=== PATIENT | male | born 1970 | race Caucasian/White ===

== ENCOUNTER 2020-01-10 08:48 | Emergency (ER) | payer OTHER ==
[~2020-01-10] VITALS: Ht 180.3 cm; Wt 88.5 kg
--- NOTE | ~2020-01-10 | EMS ---
[address] [address] EMS Patient Care Report Name: NAOMI KHALIL Room #: PRE M.R.#: [id number] Admission: Attend Phys: Discharge: Date of : 66 Report #: [id number] THIS REPORT FOR: //name// Report Transmitted: 01/10/2020 08:19 EMS Care Summary [place], [place]/[facility] Incident [id number] @ 01/10/2020 08:02 Incident Location [address] [place] [address] Patient NAOMI KHALIL Male, 49 Years 1970 Patient Address [address] [place] [address] Patient History Hypertension (HTN),Gastro-Esophageal Reflux Disease (GERD), Patient Allergies No known allergies, Patient Medications Lisinopril, Hydrochlorothiazide (Hctz), Chief Complaint CHEST PAIN Disposition Transported No Lights/[place] Dispatch Reason Chest Pain (Non-Traumatic) Transported To [facility] Narrative DISPATCHED EMERGENCY ON A C/P. 49 Y/O MALE AMBULATING OUT OF [place] ON S[address] OF [address] APPEARING IN NO IMMEDIATE DISTRESS. GCS 15 AND A/OX4. CONSENTS FOR TX AND TRANSPORATION. PT STATES THAT HE HAS BEEN HAVING C/P X2 DAYS THAT FEELS LIKE SOMEONE IS SITTING ON HIS CHEST. SHARP/CONSTANT C/P AT 5. PT STATES THAT [address] [address] EMS Patient Care Report Name: NAOMI KHALIL Room #: PRE ER M.R.#: [id number] Admission: Attend Phys: Discharge: Date of : 66 Report #: [id number] HE THOUGHT IT WAS HIS HEARTBURN SO HE HAS BEEN TAKING "TUMS" WITHOUT RELIEF. STATES HE HAS HAD SOA, NAUSEA/VOMITING BUT DENIES ANY CURRENTLY. STATES HE HAS HAD SIMILAR EPISODES OF ACID REFULX BUT NONE THAT WERE EVER THIS BAD. ASSISTED WITHOUT INCIDENT TO STRETCHER. MOVED WITHOUT INCIDENT TO AMBULANCE. PLACED ON MONTIOR AND V/S'S OBTAINED. 12-LEAD ECG OBTAINED SHOWING NSR AND NO OBVIOUS ST ELEVATION OR DEPRESSION IN ANY LEADS. IV ESTABLISHED. ASPIRIN ADMINISTERED PER PROTOCOL. TRANSPORTED TO [facility]. REASSESSED ENROUTE. REMAINS GCS 15 AND A/OX4. PAIN IS NOW 0. PT STATES HE IS FEELING MUCH BETTER. V/S'S CONTINOUSLY MONITORED ENROUTE. REPORT CALLED TO HOSPITAL. MOVED WITHOUT INCIDENT TO ER HOSPITAL BED. PT CARE TRANSFERRED TO ED RN. Initial Vitals @08:29P: 83,R: 16,BP: 139/102,Pain: 0/10,GCS: 15,SpO2: 99,Revised Trauma: 12,VT Suspected: false @08:20P: 83,R: 16,BP: 154/112,Pain: 5/10,GCS: 15,Revised Trauma: 12, Assessments @08:19MENTAL:Time Oriented,Person Oriented,Event Oriented,Place Oriented,SKIN:HEENT:Eyes: Left Pupil: 4-mm,Eyes: Right Pupil: 4-mm,Head/Face: No Abnormalities,Neck/Airway: No Abnormalities,LUNG SOUNDS:General: Vomiting,General: Nausea,ABDOMEN:General: Vomiting,General: Nausea,PELVIS//GI:EXTREMITIES:Capillary Refill: Left Upper: < 2 Sec,Capillary Refill: Left Lower: < 2 Sec,Capillary Refill: Right Upper: < 2 Sec,Capillary Refill: Right Lower: < 2 Sec,Left Arm: No Abnormalities,Right Arm: No Abnormalities,Left Leg: No Abnormalities,Right Leg: No Abnormalities,PULSE:Radial: 2+ Normal,NEURO:No Abnormalities, Impression Chest Pain / Discomfort Procedures @08:19ALS AssessmentResponse: UnchangedSucceeded@08:20StretcherResponse: Unchanged@08:2312-Lead ECGResponse: UnchangedSucceeded@08:223-Lead ECGResponse: UnchangedSucceeded@08:24Aspirin - 324 Milligrams (mg) - OralResponse: Improved Timeline 08:00,Call Received 08:00,Dispatch Notified 08:02,Dispatched 08:03,En Route 08:16,On Scene 08:18,At Patient 08:19,ALS Assessment,Response: UnchangedSucceeded, 08:20,Stretcher,Response: Unchanged 08:20,BP: 154/112 M,PULSE: 83,RR: 16 R,SPO2: Ox,ETCO2: ,BG: ,PAIN: 5,GCS: 15, 08:22,3-Lead ECG,Response: UnchangedSucceeded, [facility] [address] [place] [address] EMS Patient Care Report Name: NAOMI KHALIL Room #: PRE M.R.#: [id number] Admission: Attend Phys: Discharge: Date of : 66 Report #: [id number] 08:23,12-Lead ECG,Response: UnchangedSucceeded, 08:24,Aspirin - 324 Milligrams (mg) - Oral,Response: Improved 08:29,BP: 139/102 M,PULSE: 83,RR: 16 R,SPO2: 99 Ox,ETCO2: ,BG: ,PAIN: 0,GCS: 15, 08:31,Depart Scene 08:44,At Destination 09:00,Call Closed Disclaimer v1.1 Copyright 2020 [email or web address] This EMS Care Summary contains data elements from the applicable legal record (which may be displayed differently). It is designed to provide pertinent information for the following purposes: continuity of care, clinical quality, and state data reporting. The complete legal record is available to ED staff and administrators of the receiving hospital in [employer]'s Patient Tracker. All data is provided "as is."
[2020-01-10] MEDS ORDERED: LOSARTAN-HCTZ1 EAC1 PO (09:09)
[2020-01-10 09:15] LABS: ABSOLUTE NEUTROPHILS 9.5 thou/uL (1.4-8.2); EOSINOPHILS 2.1 % (0.0-3.0); HEMATOCRIT 35.3 % (42.0-52.0); LYMPHOCYTES 12.6 % (24.0-44.0); MCH 22.2 pg (26.0-34.0); MCV 71.5 fL (80.0-100.0); MONOCYTES 9.8 % (1.0-8.0); PLATELET COUNT 306 thou/uL (150-400); POLYS 74.5 % (36.0-66.0); RBC 4.94 mil/uL (4.50-6.00); RDW 16.7 % (10.5-14.5); WBC 12.8 thou/uL (4.0-11.0)
[2020-01-10 09:25] LABS: ANION GAP 6 mmol/L (7-16); BUN 13 mg/dL (7-18); CALCIUM 9.8 mg/dL (8.5-10.1); CHLORIDE 101 mmol/L (98-107); CO2 30 mmol/L (21-32); CREATININE 1.3 mg/dL (0.7-1.3); GLUCOSE 115 mg/dL (74-106); POTASSIUM 3.7 mmol/L (3.5-5.1); SODIUM 137 mmol/L (136-145)
[2020-01-10 09:35] LABS: ALBUMIN 3.5 g/dL (3.4-5.0); SGOT 30 U/L (15-37); SGPT 39 U/L (30-65); TOTAL BILIRUBIN 0.3 mg/dL (0.2-1.0); TOTAL PROTEIN 7.9 g/dL (6.4-8.2); TROPONIN-I <0.06 ng/mL (<0.06)
[2020-01-10 10:00] LABS: ANISOCYTOSIS 1+; MICROCYTES 1+
[2020-01-10 10:01] LABS: HYPOCHROMASIA 1+
[2020-01-10] MEDS ORDERED: LIDOCAINE40 MG/1 ML PO (10:55)
[2020-01-10] MEDS ORDERED: BENADRYL A12.5 MG/5 PO (10:55)
[2020-01-10 11:33] VITALS: BP 125/86
--- NOTE | 2020-01-11 10:53 | EKG ---
[facility] [place] [address] ELECTROCARDIOGRAM REPORT Name: NAOMI KHALIL Room #: DEP [facility]#: [id number] Admission: 01/10/20 Attend Phys: Discharge: 01/10/20 Date of : 66 Report #: [id number] THIS REPORT FOR: cc: FAM - Family physician unknown FAM - Family physician unknown Walter Lindo MD [facility] THIS REPORT FOR: //name// [facility] ED Test Date: 2020-01-10 Test Time: 08:51:08 Pat Name: NAOMI KHALIL Department: Room: Gender: Systems Support Officer: [facility] : 1970 Requested By: Esther Stringer Order Number: [id number] MD: Walter Lindo Measurements Intervals [place] Rate: 75 P: 46 RI: 178 QRS: -48 QRSD: 94 T: 48 QT: 393 QTc: 439 Interpretive Statements Sinus rhythm LAD, consider left anterior fascicular block RSR' in V1 or V2, right VCD No previous ECG available for comparison Electronically Signed On 01-11-2020 10:53:12 CDT by Walter Lindo [email or web address] <ELECTRONICALLY SIGNED> By: Walter Lindo MD, FACC 01/11/20 [id number] Walter Lindo MD, [facility] /EPI
== END 2020-01-10 11:34 | disposition home or self-care (01) ==
LOC: ER 08:48
PROVIDERS: Emergency Medicine
DX: K20.9 Esophagitis, unspecified (principal); R05 Cough; I10 Essential (primary) hypertension; Z79.899 Other long term (current) drug therapy